=== PATIENT | male | born 1995 | race Two or more races ===

== ENCOUNTER 2024-05-12 14:11 | Emergency (ER) | payer OTHER ==
[2024-05-12 14:22] VITALS: BMI 25.7
[2024-05-12 15:27] LABS: BASO % 0.2 % (0-2.0); EOS % 0.6 % (0-4.5); HEMATOCRIT 45.8 % (35.4-49); HEMOGLOBIN 15.4 GM/dL (11.7-16.9); LYMPH % 35.8 % (8-40); MCHC 33.5 g/dl (32.0-35.9); MEAN CELL VOLUME 86.5 fl (80-96); MEAN PLT VOLUME 8.5 fl (7.5-11.1); MONO % 11.9 % (3.8-10.2); NEUT % 51.5 % (42.8-82.8); PLATELET COUNT 252 10^3/uL (134-434); RDW 13.2 % (11.9-15.9); WHITE BLOOD COUNT 6.9 K/mm3 (4.0-10.0)
[2024-05-12 15:34] LABS: INR 0.97 (0.83-1.09)
[2024-05-12] MEDS ORDERED: KETAMINE HCL 200 MG/20 ML VIAL ONE (15:34)
[2024-05-12] MEDS ORDERED: PROPOFOL 20 ML ONE (15:35)
[2024-05-12 15:36] LABS: ACTIVATED PTT 27.2 SECONDS (25.2-36.5)
[2024-05-12 15:46] LABS: POTASSIUM 3.6 mmol/L (3.5-5.1)
[2024-05-12 15:48] LABS: CALCIUM 9.3 mg/dL (8.5-10.1)
[2024-05-12 15:49] LABS: ALBUMIN 4.1 g/dl (3.4-5.0); BLOOD UREA NITROGEN 16.9 mg/dL (7-18)
[2024-05-12 15:53] LABS: BILIRUBIN,TOTAL 0.3 mg/dL (0.2-1); TOT PROT 7.4 g/dl (6.4-8.2)
[2024-05-12] MEDS: PROPOFOL 200 MG/20 ML VIAL IVPUSH ONE (16:10)
[2024-05-12] MEDS: KETAMINE HCL 200 MG/20 ML VIAL IVPUSH ONE (16:10)
[2024-05-12 17:10] VITALS: RESP 18
[2024-05-12 19:08] VITALS: BP 125/73; PULSE 72; TEMP 98.2
== END 2024-05-12 20:10 | disposition home or self-care (01) ==
LOC: JERFT 14:11 → JER 14:11
PROC: 0SSGXZZ Reposition Left Ankle Joint, External Approach (ICD-10-PCS; principal; 2024-05-12)
DX: S82.852A Displaced trimalleolar fracture of left lower leg, initial encounter for closed fracture (principal); W50.0XXA Accidental hit or strike by another person, initial encounter; X50.1XXA Overexertion from prolonged static or awkward postures, initial encounter; Y93.67 Activity, basketball
CPT/HCPCS: 36415; 73590-TC-LT-FY; 73610-TC-LT-FY; 73630-TC-LT; 80053; 85025; 85610; 85730; 86850; 86900; 86901; 93005; 93010; 99285-25